=== PATIENT | female | born 1990 | race Caucasian/White ===

== ENCOUNTER 2019-04-14 21:39 | Emergency (ER) | payer BC, SELFPAY ==
[2019-04-14 22:13] VITALS: BP 157/108; PULSE 89; RESP 16; TEMP 37.1; O2SAT 100; BMI 48.1
== END 2019-04-15 00:22 | disposition home or self-care (01) ==
PROVIDERS: Emergency Provider Emergency Medicine; Family Provider Family Medicine; PCP Family Medicine
DX: Z53.21 Procedure and treatment not carried out due to patient leaving prior to being seen by health care provider (principal)
CPT/HCPCS: 99281

== ENCOUNTER → 2021-01-17 13:43 | Outpatient (BNVA) | payer BC, SELFPAY | PROVIDERS: Family Provider Family Medicine; PCP Family Medicine; Visit Provider Internal Medicine | DX: I77.6 Arteritis, unspecified (principal); G62.9 Polyneuropathy, unspecified; Z79.899 Other long term (current) drug therapy; Z11.59 Encounter for screening for other viral diseases | CPT/HCPCS: 99204 ==

== ENCOUNTER 2021-01-17 14:52 | Outpatient (CLI) | payer BC, SELFPAY ==
--- NOTE | 2021-01-17 15:01 | XR_ITS ---
WS: [id number] Lateral views of cervical spine in the flexion, extension and neutral positions. 01/17/2021 Clinical Data: G62.9 - Polyneuropathy, unspecified Comparison: None. Findings: The disc heights are normal. No compression fractures are seen. There is no prevertebral soft tissue swelling. On flexion and extension there is no limitation of motion or subluxation. XR/XR cervical spine fl/ex [id number] Impression: Negative for limitation of motion or subluxation on flexion or extension.
--- NOTE | 2021-01-17 15:01 | XR_ITS ---
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 Findings: No nodules, masses or effusions are seen. The heart is normal. The pulmonary vascularity is not increased. No pneumonia or pneumothorax is seen. XR/XR chest 2V* [id number] Impression: Negative chest.
== END 2021-01-17 14:53 | disposition home or self-care (01) ==
LOC: RAD 14:56
PROVIDERS: PCP Clinical Nurse Specialist Adult Health; Visit Provider Internal Medicine
DX: G62.9 Polyneuropathy, unspecified (principal); Z79.899 Other long term (current) drug therapy
CPT/HCPCS: 71046; 72040

== ENCOUNTER 2021-01-19 14:47 | Outpatient (CLI) | payer BC, SELFPAY ==
--- NOTE | 2021-01-19 14:50 | CT_ITS ---
WS: [id number] CT head wo con* [id number] REASON FOR EXAM: G62.9 - Polyneuropathy, unspecified IV CONTRAST ADMINISTERED: None. TOTAL EXAM DLP: 1012.[address] scans at [facility] use at least one of these dose optimization techniques: automat ed exposure control; mA and/or kV adjustment per patient size (includes targeted exams where dose is matched to clinical indication); or iterative reconstruction. FINDINGS: No significant interval change compared to previous study 09/21/2018. No midline shift or other significant mass effect. No findings of intracranial hemorrhage and no extra-axial fluid collection. No focal brain parenchymal abnormality within the cerebral hemispheres, cerebellar hemispheres, or br ainstem. Normal ventricles. No focal abnormality of the skull base. CT/CT head wo con* [id number] IMPRESSION: No interval change compared to the previous study. No acute intracranial abnorm ality.
== END 2021-01-19 14:48 | disposition home or self-care (01) ==
LOC: RAD 14:48
PROVIDERS: PCP Clinical Nurse Specialist Adult Health; Visit Provider Internal Medicine
DX: G62.9 Polyneuropathy, unspecified (principal); Z11.59 Encounter for screening for other viral diseases
CPT/HCPCS: 36415; 70450; 81001; 81003; 82607; 82728; 83516; 83540; 83735; 84155; 84165; 85651; 86140; 86704; 86803; 87086; 87340

== ENCOUNTER 2021-01-26 14:33 | Outpatient (CLI) | payer BC, SELFPAY ==
[2021-01-26 15:45] LABS: C Reactive Protein 22.3 mg/L (0.0-4.9); Complement C3 180 mg/dL (90-180); Immunoglobulin IGA 542 mg/dL (70-400); Immunoglobulin IGG 1599 mg/dL (700-1600); Immunoglobulin IGM 244 mg/dL (40-230)
[2021-01-29 16:48] LABS: Cyclic Citrullinated Peptide <16 UNITS
[2021-01-30 00:37] LABS: Gliadin Ab.IgA <1.0 U/mL; Gliadin Ab.IgG <1.0 U/mL; Immunoglobulin A 538 mg/dL (47-310); Tissue Transglutaminase IgA Ab <1.0 U/mL; Tissue transglutaminase Ab.IgG <1.0 U/mL
== END 2021-01-26 14:34 | disposition home or self-care (01) ==
LOC: LAB 14:40
PROVIDERS: PCP Clinical Nurse Specialist Adult Health; Visit Provider Internal Medicine
DX: R70.0 Elevated erythrocyte sedimentation rate (principal)
CPT/HCPCS: 82784; 83516; 86140; 86160; 86200; 86431

== ENCOUNTER 2021-02-14 10:00 | Outpatient (CLI) | payer BC, SELFPAY ==
[2021-02-14 11:58] LABS: Basophils # 0.1 10^3/uL (0.0-0.1); Basophils % 0.6 %; Eosinophils # 0.1 10^3/uL (0.0-0.8); Eosinophils % 1.3 %; Hematocrit 41.2 % (37.0-47.0); Hemoglobin 13.2 g/dL (11.5-15.3); Lymphocytes # 1.8 10^3/uL (0.8-4.8); Lymphocytes % 17.8 %; Mean Corpuscular Hemoglobin 28.2 pg (28.0-34.0); Mean Platelet Volume 11.5 fL (7.4-10.4); Monocytes # 0.7 10^3/uL (0.2-0.9); Neutrophils # 7.36 10^3/uL (1.8-7.7); Neutrophils % 72.9 %; Nucleated Red Blood Cells % 0 %; Platelet Count 382 10^3/cmm (130-400); Red Blood Count 4.68 10^6/uL (4.1-5.3); Red Cell Distribution Width 12.7 % (12.1-15.1); White Blood Count 10.1 10^3/uL (4.0-10.0)
[2021-02-14 12:15] LABS: LAB Peripheral Smear Sent for Review
[2021-02-14 12:41] LABS: Alanine Aminotransferase 12 U/L (0-33); Albumin Level 3.8 g/dL (3.5-5.2); Alkaline Phosphatase 95 IU/L (35-105); Blood Urea Nitrogen 7 mg/dL (6-20); Calcium 9.3 mg/dL (8.5-10.5); Carbon Dioxide 27 mmol/L (22-29); Chloride 103 mmol/L (98-107); Ferritin 190 ng/mL (15-150); Globulin 4.3 g/dL (1.3-4.6); Glomerular Filtration Rate 118.2 mL/min (90-130); Glucose 90 mg/dL (65-115); Homocysteine 11.39; Iron 49 ug/dL (37-145); Osmolality Calculated 284 mOsm/kg (285-295); Sodium 138 mmol/L (136-145); Thyroid Stimulating Hormone 3.91 uIU/mL (0.27-4.20); Total Bilirubin 0.2 mg/dL (0.15-1.2); Total Protein 8.1 g/dL (6.6-8.7); Vitamin B12 243 pg/mL (232-1245)
[2021-02-14 12:48] LABS: Anion Gap 12.1 (5-19)
[2021-02-14 12:49] LABS: Aspartate Amino Transferase 15 U/L (0-32); Lactate Dehydrogenase 234 U/L (135-214); Potassium 4.1 mmol/L (3.5-5.1)
[2021-02-14 13:27] LABS: Percent Saturation 17.2 % (20-50); Total Iron Binding Capacity 284 mcg/dl; Unsaturated Iron Binding 235 ug/dL (112-347)
--- NOTE | 2021-02-14 18:16 | ONC CON_ITS ---
Dr. Neil New Patient Note Patient: Isabela Bennett Unit #: [id number]: 1990 Dicatated By: Ishaan Neil M.D.Date of Visit: Feb 14, 2021 Onc MED New Patient/Consult Referring Physician: Dali Cardona A.P.N. Chief Complaint: Polyclonal gammopathy. History of Present Illness: This is a 30-year-old woman with a polyclonal gammopathy. 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 At that time she had a fairly generalized skin eruption, apparently involving both the trunk and lower extremities. She had complete resolution of the skin eruption on steroid therapy and she has had no recurrence. She had recently seen her primary care provider with complaints of tingling in her scalp on the right side. There was concerned that the vasculitis might be recurring, and she apparently was found to have elevated inflammatory markers. She was then seen for consultation by Dr. Juares on 01/17/2021. Her laboratory studies at that time included a significantly elevated sed rate at 70 mL/h and an elevated CRP at 26.2 mg/L. 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 Her urine protein electrophoresis showed no monoclonal protein. Her hepatitis serology was nonreactive. Her serum iron was low at 29 mcg/dL and her B12 level also slightly low at 225 pg/mL. Her subsequent laboratory studies included quantitative immunoglobulin levels which showed IgG at the upper limit of normal at 1599 mg/dL, IgA elevated at 538 mg/dL, and IgM elevated at 244 mg/dL. Her RA titer was normal at 10 IU/mL and the IgG anti-CCP was normal <16. She continues to have some tingling in her scalp on the right side and she also has had some nerve pain, though her symptoms have improved somewhat with venlafaxine. She says that some days she is more tired than others, but she has normal activity. ECOG score is 0. Her appetite is good. She has not had fever. She occasionally has sweating and she also has a tendency to feel hot. She complains that her ears feel full and she sometimes has stuffy nose. She has not had sore mouth or throat, and she does not complain of cough. She does have some shortness of breath and she sometimes has heaviness in her upper chest. She also reports having palpitations. She has no GI/ complaints other than heartburn. She has pain in her shoulders and sometimes in her ankles. She does not complain of headache. She sometimes has dizziness. She does not have any other focal neurologic symptoms. She has not had any abnormal bruising or bleeding, and she has had no recurrence of skin eruption. She does report having anxiety. Past Medical History: Her medical history includes anxiety, depression, history of cutaneous vasculitis, hypothyroidism, and obstructive sleep apnea. Past Surgical History: Her surgical/procedural history includes cholecystectomy in 2014 and section in 2012. Medications: clonazePAM 1 Tablet (of 0.5 mg) Oral daily PRN, Levothyroxine Sodium 1 Tablet (of 50 mcg) Oral daily, Venlafaxine HCl ER 1 Capsule (of 37.5 mg) Capsule SR 24 HR Oral daily Allergies: Sulfamethoxazole-Trimethoprim Social History: Ms. Bennett is single. 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 She is a non-smoker. She does not drink alcohol. Family History: Father is still living at age 54. He has diabetes and he recently had surgery for colon cancer. Mother with lung cancer at age 49. Two brothers are in good health. Review Of Symptoms: Constitutional - Some days she is more tired than others, but she still has normal activity. Her appetite is good. She has not had fever. She occasionally has sweating, and she sometimes feels hot. ECOG score is 0, Allergic/Immunologic - She was treated for cutaneous vasculitis 2 years ago, Eyes - No change in vision, ENMT - No hearing loss or tinnitus. She complains that her ears feel full and she sometimes has stuffy nose. No mouth sores. No sore throat or difficulty swallowing, Hematologic/Lymphatic - No abnormal bruising or bleeding, Respiratory - She has some shortness of breath. No cough. No pleuritic pain or hemoptysis, Cardiovascular - She sometimes has heaviness in her upper chest and she sometimes has palpitations, Gastrointestinal - No nausea or vomiting. She has heartburn. No diarrhea or constipation. No blood in the stool or black stools, Genitourinary (F) - No dysuria or hematuria. No urinary frequency. No urgency or incontinence, Musculoskeletal - She has some pain in her shoulders and sometimes in her ankles, Integumentary - She has had no recurrence of skin eruption, Neurologic - No headache. She sometimes has dizziness. She does not complain of numbness, she has been having some tingling in her scalp area on the right side and she also reports having some nerve pain, Psychiatric - She has anxiety. She currently does not have depression. No insomnia. Vital Signs: Performed on Feb 14, 2021 10:41: 3, 0, 53.48 (HIGH), 2.42 sq.m, 65 in, 98 %, 89 /min, 18 /min, 137/88 mm(hg), 97.8 F (LOW), and 321.4 lbs (HIGH). Physical Examination: Constitutional - She does not appear acutely ill, Eyes - Sclerae nonicteric. Conjunctivae clear, ENMT - No lesions noted in the oral cavity, Neck - No mass or thyromegaly, Hematologic/Lymphatic - No cervical, clavicular, or axillary adenopathy, Respiratory - Lungs are clear with good air movement bilaterally, Cardiovascular - Heart rhythm is regular. There is no murmur, gallop, or rub noted, Abdomen - Distended. Liver and spleen are not enlarged. There is no abdominal mass or ascites noted and there is no inguinal adenopathy, Back/Spine - No spine or CVA tenderness noted, Extremities - No edema. Pedal pulses are palpable bilaterally, Integumentary - No rashes. No suspicious skin lesions noted, Neurologic - No focal neurologic deficits noted. Problem List: 1. Patient with polyclonal gammopathy in association with significantly elevated inflammatory markers. The underlying cause is uncertain. 2. She has a history of cutaneous vasculitis diagnosed in July 2018, completely resolved with steroid therapy. 3. Hypothyroidism. 4. Obstructive sleep apnea. 5. Chronic anxiety. 6. History of depression. Problems Addressed with this Encounter and Plan: Patient with polyclonal gammopathy in association with significantly elevated inflammatory markers. The underlying cause is uncertain. She has a history of cutaneous vasculitis diagnosed in July 2018, but it completely resolved with steroid therapy, and thus far there has been no evidence of recurrence. The studies thus far show no evidence of underlying hematologic disorder. Her initial studies, though, also showed low serum iron and a slightly low B12 level. Given those findings, she will have additional laboratory studies today to include CBC, comprehensive metabolic profile, sed rate and CRP level, serum iron studies and ferritin, B12 and folate levels, methylmalonic acid and homocystine levels, TSH level, LDH level, repeat serum protein electrophoresis with immunofixation, and serum free light chain assay. She will have further evaluation as indicated. Signed By: Ishaan Neil M.D. <<Signature on File>>
[2021-02-15 10:29] LABS: PROTEIN, TOTAL 7.8 g/dL (6.1-8.1)
[2021-02-15 13:12] LABS: KAPPA LIGHT CHAIN, FREE, SERUM 43.8 mg/L (3.3-19.4); KAPPA/LAMBDA LIGHT CHAINS FREE 1.37 (0.26-1.65); LAMBDA LIGHT CHAIN, FREE, SERU 31.9 mg/L (5.7-26.3)
[2021-02-15 13:33] LABS: ALBUMIN 3.4 g/dL (3.8-4.8); ALPHA 1 GLOBULIN 0.4 g/dL (0.2-0.3); BETA 1 GLOBULIN 0.5 g/dL (0.4-0.6); BETA 2 GLOBULIN 0.6 g/dL (0.2-0.5); GAMMA GLOBULIN 1.9 g/dL (0.8-1.7)
[2021-02-15 14:05] LABS: Erythrocyte Sedimentation Rate 70 mm/hr (0-15)
[2021-02-20 15:52] LABS: Methylmalonic Acid 97 nmol/L (87-318)
== END 2021-02-14 10:01 | disposition home or self-care (01) ==
LOC: ONCMED 10:03
PROVIDERS: PCP Clinical Nurse Specialist Adult Health; Visit Provider Internal Medicine Medical Oncology
DX: D89.0 Polyclonal hypergammaglobulinemia (principal); E03.9 Hypothyroidism, unspecified; G47.33 Obstructive sleep apnea (adult) (pediatric); F41.9 Anxiety disorder, unspecified; F32.9 Major depressive disorder, single episode, unspecified; Z79.899 Other long term (current) drug therapy
CPT/HCPCS: 36415; 80053; 82607; 82728; 83090; 83540; 83550; 83615; 83883; 83921; 84155; 84165; 84443; 85025; 85651; 86141; 99204

== ENCOUNTER 2021-03-13 12:31 | Outpatient (CLI) | payer BC, SELFPAY ==
[2021-03-13 14:31] LABS: Basophils # 0.1 10^3/uL (0.0-0.1); Basophils % 0.6 %; Eosinophils # 0.2 10^3/uL (0.0-0.8); Eosinophils % 1.4 %; Hematocrit 42.2 % (37.0-47.0); Hemoglobin 14.1 g/dL (11.5-15.3); Lymphocytes # 1.7 10^3/uL (0.8-4.8); Lymphocytes % 14.5 %; Mean Corpuscular HGB Conc 33.4 g/dL (30.0-36.0); Mean Corpuscular Hemoglobin 28.5 pg (28.0-34.0); Mean Corpuscular Volume 85.4 fl (81-99); Mean Platelet Volume 12.9 fL (7.4-10.4); Monocytes # 0.8 10^3/uL (0.2-0.9); Monocytes % 6.7 %; Neutrophils # 9.17 10^3/uL (1.8-7.7); Neutrophils % 76.2 %; Nucleated Red Blood Cells % 0 %; Platelet Count 315 10^3/cmm (130-400); Red Blood Count 4.94 10^6/uL (4.1-5.3)
[2021-03-13 14:36] LABS: Homocysteine 11.97
[2021-03-13 15:15] LABS: Urine Appearance Cloudy (CLEAR); Urine Color Red (Yellow)
[2021-03-13 15:16] LABS: Add Urine Microscopic? YES; Bilirubin Urine 1+ (Negative); Blood Urine 3+ (Negative); Glucose Urine UA Norm (Normal); Ketones Urine Negative (Negative); Leukocyte Esterase Urine Trace (Negative); Nitrate Urine Negative (Negative); Protein Urine 2+ (Negative); Urobilinogen Urine Norm (Negative); pH Urine 5 (5-7)
[2021-03-13 15:17] LABS: Amorphous Sediment Urine TRACE /hpf; Bacteria Urine 1+ /hpf; Mucus Urine 2+ /hpf; RBC Urine 0-4 /hpf (0-2); Squamous Epithelial Cell Urine 15-25 /hpf (0-5); Uric Acid Crystals Urine N /hpf
[2021-03-13 15:18] LABS: Add Urine Culture? No
[2021-03-13 15:41] LABS: Slide Review Slide Review Perform
[2021-03-16 12:13] LABS: ANCA Screen NEGATIVE (NEGATIVE)
[2021-03-19 16:42] LABS: Methylmalonic Acid 122 nmol/L (87-318)
== END 2021-03-13 12:32 | disposition home or self-care (01) ==
LOC: ONCMED 12:32
PROVIDERS: Internal Medicine Medical Oncology; PCP Clinical Nurse Specialist Adult Health; Visit Provider Internal Medicine Hematology & Oncology
DX: D89.0 Polyclonal hypergammaglobulinemia (principal)
CPT/HCPCS: 36415; 81001; 83090; 83516; 83921; 85025; 85651; 87040

== ENCOUNTER 2021-03-16 06:51 | Outpatient (CLI) | payer BC, SELFPAY ==
[2021-03-16 10:37] LABS: Add Urine Culture? No; Bacteria Urine 1+ /hpf; Bilirubin Urine Neg (Negative); Blood Urine 3+ (Negative); Glucose Urine UA Norm (Normal); Ketones Urine Negative (Negative); Leukocyte Esterase Urine Negative (Negative); Mucus Urine 1+ /hpf; Nitrate Urine Negative (Negative); Protein Urine 1+ (Negative); RBC Urine 80-100 /hpf (0-2); Squamous Epithelial Cell Urine 15-25 /hpf (0-5); Urine Appearance SL Hazy (CLEAR); Urine Color Orange (Yellow); Urobilinogen Urine 1 mg/dL (Negative); pH Urine 5 (5-7)
[2021-03-22 22:06] LABS: Cryoglobulins Qualitative None Detected (None Detected)
== END 2021-03-16 06:52 | disposition home or self-care (01) ==
LOC: ONCMED 06:52
PROVIDERS: PCP Clinical Nurse Specialist Adult Health; Visit Provider Internal Medicine Hematology & Oncology
DX: D89.0 Polyclonal hypergammaglobulinemia (principal)
CPT/HCPCS: 36415; 81001; 82595

== ENCOUNTER 2021-12-28 14:20 | Emergency (ER) | payer BC, SELFPAY ==
--- NOTE | 2021-12-28 14:29 | ECG_ITS ---
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 Measurements Intervals [place] Rate: 74 P: 56 VT: 169 QRS: 36 QRSD: 93 T: 34 QT: 359 QTc: 399 Interpretive Statements SINUS RHYTHM No previous ECG available for comparison Electronically Signed On 12-29-2021 8:35:57 CDT by Judit Sprague M.D. [id number]
[2021-12-28 14:30] VITALS: BP 175/116; PULSE 81; RESP 16; TEMP 36.4; O2SAT 99
--- NOTE | 2021-12-28 14:57 | XR_ITS ---
WS: [id number] Portable AP upright chest, 12/28/2021 Clinical Data: cp Comparison: PA and lateral chest, 01/17/2021 Findings: No nodules, masses or effusions are seen. The heart is normal. The pulmonary vascularity is not increased. No pneumonia or pneumothorax is seen. XR/XR chest 1V portable [id number] Impression: Negative chest.
[2021-12-28 16:11] LABS: Basophils # 0.1 10^3/uL (0.0-0.1); Basophils % 0.6 %; Eosinophils % 0.3 %; Hemoglobin 13.8 g/dL (11.5-15.3); Lymphocytes % 14.3 %; Mean Corpuscular HGB Conc 32.1 g/dL (30.0-36.0); Mean Corpuscular Hemoglobin 28.3 pg (28.0-34.0); Mean Corpuscular Volume 88.3 fl (81-99); Mean Platelet Volume 11.8 fL (7.4-10.4); Monocytes # 0.7 10^3/uL (0.2-0.9); Monocytes % 4.7 %; Neutrophils # 11.35 10^3/uL (1.8-7.7); Neutrophils % 79.6 %; Nucleated Red Blood Cells % 0 %; Platelet Count 390 10^3/cmm (130-400); Red Blood Count 4.87 10^6/uL (4.1-5.3); Red Cell Distribution Width 12.7 % (12.1-15.1); White Blood Count 14.2 10^3/uL (4.0-10.0)
[2021-12-28 16:44] LABS: Troponin(5th) Baseline 6 ng/L (0-10)
[2021-12-28 16:52] LABS: Alanine Aminotransferase 10 U/L (0-33); Albumin Level 4.3 g/dL (3.5-5.2); Alkaline Phosphatase 110 U/L (35-105); Anion Gap 14.8 (5-19); Aspartate Amino Transferase 11 U/L (0-32); Blood Urea Nitrogen 10 mg/dL (6-20); Calcium 10.4 mg/dL (8.5-10.5); Carbon Dioxide 29 mmol/L (22-29); Chloride 100 mmol/L (98-107); Globulin 4.2 g/dL (1.3-4.6); Glomerular Filtration Rate 98.3 mL/min (90-130); Glucose 107 mg/dL (65-115); Osmolality Calculated 290 mOsm/kg (285-295); Potassium 3.8 mmol/L (3.5-5.1); Sodium 140 mmol/L (136-145); Total Bilirubin 0.2 mg/dL (0.15-1.2); Total Protein 8.5 g/dL (6.6-8.7)
[2021-12-28] MEDS: acetaminophen 500 mg Tablet PO (17:52)
--- NOTE | 2021-12-28 17:54 | ED_ITS ---
HPI - General Adult General: Chief complaint: Chest Pain Stated complaint: Chest pain SOB Time Seen by Provider: 12/28/21 17:37 History of Present Illness: CC: Chest Pain HPI: This is a 31yo patient hx of hypothyroidism currently getting workup for positive ITALIA marker presenting to the ED complaining of acute constant achy/sharp chest pain for the last 7 days with radiation to the chest and shoulder. No associated with shortness of breath, chest pain or dyspnea on exertion. Pain is not tearing in nature and does not radiate to the back. Pain not associated with vomiting or PO intake. Denies any recent sympathomimetic drug use. Patient denies any cough. Denies palpitations, dysphagia, diaphoresis, radiation of pain to bilateral arms, jaw. Denies F/N/V/D. Patient denies any r ecent immobility, surgery, unilateral leg swelling, or prior PE. Patient denies any orthopnea. Onset: 7days ago Duration: ongoing for the last 7days Location: home Severity: mild/moderate Associated symptoms: Reports chest pain and dyspnea; Deny nausea, rash, palpitations or vomiting Review of Systems Const: Denies: fever(s) or chills Eyes: Denies: change in vision ENMT: Denies: mouth pain Card: Reports: chest pain; Denies: palpitations Resp: Reports: dyspnea; Denies: non-productive cough GI: Denies: abdominal pain, nausea, vomiting or diarrhea : Denies: dysuria Musc: Denies: extremity pain Skin/Breast: Denies: rash or new lesions Neuro: Denies: weakness in extremities Psych: Reports: other (Normal mood) Mark/Lymph: Denies: easy bruising [facility] ED PFSH: Medical History (Updated 01/05/22 @ 00:02 by ) Chronic steroid use Cutaneous vasculitis Fibromyalgia High risk medication use Hypothyroidism Inflammatory arthritis Surgical History (Updated 12/31/21 @ 09:58 by Fab Oscar MD) Hx of section Hx of cholecystectomy Family History Mother Cancer Father Diabetes Denies family history of Rheumatoid arthritis Lupus CAD (coronary artery disease) Hyperlipidemia Hypertension Stroke Social History Smoking and tobacco status: never smoked Alcohol intake: never History of recent travel: No Physical Exam Const: COMMON NORMALS: alert HENMT: COMMON NORMALS: atraumatic HEAD & SCALP: atraumatic MOUTH: moist mucous membranes not abnormal Eye: COMMON NORMALS: EOMs intact bilaterally and conjunctivae normal CONJUNCTIVA: Yes conjunctivae normal Neck/C-Spine: COMMON NORMALS: full ROM and supple Resp: COMMON NORMALS: normal respiratory effort and clear to auscultation bilaterally AUSCULTATION: clear to auscultation bilaterally Cardio: COMMON NORMALS: regular rate RATE: regular rate OTHER: 2+ radial pulses b/l GI: COMMON NORMALS: Soft to palpation and non-tender PALPATION: Yes Soft to palpation OTHER: No focal TTP. NO guarding rebound, guarding, rigidity. No CVA tenderness to percussion. Neg Dotson/Neg McBurney's point tenderness, no suprabupic tenderness to palpation. Extremity: COMMON NORMALS: full ROM Neuro: SENSORIUM/ORIENTATION: Yes alert MOTOR EXAM: No Abnormal motor strength present and Other motor observations present (no focal motor deficits) Psych: COMMON NORMALS: speech normal SPEECH: Yes normal speech MOOD & AFFECT: Yes euthymic mood Course Vital Signs: Vital signs: Vital Signs Temperature 97.6 F 12/28/21 14:30 Pulse Rate 81 12/28/21 14:30 Respiratory Rate 16 12/28/21 14:30 Blood Pressure 175/116 12/28/21 14:30 Pulse Oximetry 99 12/28/21 14:30 Oxygen Delivery Me thod 12/28/21 14:30 MDM - General Adult Medical Decision Making [31]yo patient w/ hx of hypothyroidism presenting to the ED with evaluation of new onset sharp chest pain ongoing constant x 7 days. HDS, pulse 2+ radially bilaterally, no signs of fluid overload, AAOx3, neuro exam intact. Given History and Exam today I have no suspicion for ACS, Pneumothorax, Pneumonia, Pulmonary Embolus, Tamponade, Aortic Dissection or other emergent problems as a cause for this presentation. Workup: ECG, CXR, CBC, BMP, Troponin Interventions: Tylenol Findings: ECG: No overt evidence of STEMI, hyperacute T waves, localizable STD or T wave inversions. No evidence of Brugada?s sign, delta wave, epsilon wave, significantly prolonged QTc, or malignant arrhythmia. No Q waves. Other Labs unremarkable for emergent problems. CXR: Without PTX, PNA, or widened mediastinum Last Stress Test: never Last Heart Catheterization: never HEART Score: 0 Dimer wnl [6:30pm] On reassessment, the patient is HDS, no complaints of persistent chest pain in the ED after evaluation. ECG is non-ischemic. Workup today is unremarkable. Doubt ACS/PE or other emergent causes of chest pain. Doubt ACS/PE or other emergent causes of chest pain. No suspicion for aortic dissection given no widened mediastinum, 2+ upper extremity pulses, or tearing pain. No suspicion for PE given no pleuritic chest pain, recent immobilization or surgery hemoptysis, or other VTE risk factors. EKG is non-ischemic. XR normal. Rx: Tylenol PRN pain Disposition: Discharge. Strict return precautions discussed with the patient with full understanding. Advised patient to follow up promptly with a primary care provider in 24-48 hrs if the patient has persistent symptoms. Given return instructions for any crushing/tearing chest pain, focal weakness, syncope or any new or concerning issues. Lab Data : 12/28/21 15:50 12/28/21 15:50 Radiology Impressions Chest X-Ray 12/28/21 14:57 Impression: Negative chest. Laboratory Results WBC 14.2 10^3/uL (4.0-10.0) H 12/28/21 15:50 RBC 4.87 10^6/uL (4.1-5.3) 12/28/21 15:50 Hgb 13.8 g/dL (11.5-15.3) 12/28/21 15:50 Hct 43.0 % (37.0-47.0) 12/28/21 15:50 MCV 88.3 fl (81-99) 12/28/21 15:50 MCH 28.3 pg (28.0-34.0) 12/28/21 15:50 MCHC 32.1 g/dL (30.0-36.0) 12/28/21 15:50 RDW 12.7 % (12.1-15.1) 12/28/21 15:50 Plt Count 390 10^3/cmm (130-400) 12/28/21 15:50 MPV 11.8 fL (7.4-10.4) H 12/28/21 15:50 Neut % (Auto) 79.6 % 12/28/21 15:50 Lymph % (Auto) 14.3 % 12/28/21 15:50 [place] % (Auto) 4.7 % 12/28/21 15:50 Eos % (Auto) 0.3 % 12/28/21 15:50 Baso % (Auto) 0.6 % 12/28/21 15:50 Neut # (Auto) 11.35 10^3/uL (1.8-7.7) H 12/28/21 15:50 Lymph # (Auto) 2.0 10^3/uL (0.8-4.8) 12/28/21 15:50 [place] # (Auto) 0.7 10^3/uL (0.2-0.9) 12/28/21 15:50 Eos # (Auto) 0.0 10^3/uL (0.0-0.8) 12/28/21 15:50 Baso # (Auto) 0.1 10^3/uL (0.0-0.1) 12/28/21 15:50 Nucleated RBC % (auto) 0 % 12/28/21 15:50 Nucleated RBCs # 0.0 /100WBC 12/28/21 15:50 D-Dimer 0.29 ug/mIFEU (0-0.59) 12/28/21 17:54 Sodium 140 mmol/L (136-145) 12/28/21 15:50 Potassium 3.8 mmol/L (3.5-5.1) 12/28/21 15:50 Chloride 100 mmol/L (98-107) 12/28/21 15:50 Carbon Dioxide 29 mmol/L (22-29) 12/28/21 15:50 Anion Gap 14.8 (5-19) 12/28/21 15:50 BUN 10 mg/dL (6-20) 12/28/21 15:50 Creatinine 0.7 mg/dL (0.5-0.9) 12/28/21 15:50 GFR Calculation 98.3 mL/min (90-130) 12/28/21 15:50 Glucose 107 mg/dL (65-115) 12/28/21 15:50 Calculated Osmolality 290 mOsm/kg (285-295) 12/28/21 15:50 Calcium 10.4 mg/dL (8.5-10.5) 12/28/21 15:50 Total Bilirubin 0.2 mg/dL (0.15-1.2) 12/28/21 15:50 AST 11 U/L (0-32) 12/28/21 15:50 ALT 10 U/L (0-33) 12/28/21 15:50 Alkaline Phosphatase 110 U/L (35-105) H 12/28/21 15:50 Troponin T Baseline 6 ng/L (0-10) 12/28/21 15:50 Total Protein 8.5 g/dL (6.6-8.7) 12/28/21 15:50 Albumin 4.3 g/dL (3.5-5.2) 12/28/21 15:50 Globulin 4.2 g/dL (1.3-4.6) 12/28/21 15:50 HCG, Qual Negative (Negative) 12/28/21 17:54 Imaging Data Other Imaging: Radiologist's impression: [address] [address] XRay Report Signed Patient: Isabela Bennett Unit #: [id number] : 1990 Age/Sex: 31 / F ADM Date: 12/28/21 Loc: ER Room/Bed: Attending Dr: Ordering Provider/Ordering MD: Arun Gordon MD Date of Service: 12/28/21 Procedure(s): XR chest 1V portable [id number] Accession Number(s): [id number] Report Number: [id number] WS: [id number] Portable AP upright chest, 12/28/2021 Clinical Data: cp Comparison: PA and lateral chest, 01/17/2021 Findings: No nodules, masses or effusions are seen. The heart is normal. The pulmonary vascularity is not increased. No pneumonia or pneumothorax is seen. XR/XR chest 1V portable [id number] Impression: Negative chest. ? Dictated By: Blossom Holland MD Signed By: Blossom Holland MD Signed Date/Time: 12/28/211533 DD/ 33 Discharge Plan Discharge Patient Disposition: Home Clinical Impression: Chest pain Condition: Stable Prescriptions: No Action pantoprazole 40 mg tablet,delayed release (DR/EC) See Rx Instructions PO DAILY Qty: 30 3RF Rx Instructions: take in AM 30 minutes before meal PO daily; methotrexate sodium 2.5 mg tablet See Rx Instructions PO .Q7days Qty: 30 3RF Rx Instructions: take 6 tabs on same day once a week PO .Q7days; folic acid 1 mg tablet 1 mg PO DAILY Qty: 30 3RF clonazepam 0.5 mg tablet 0.5 mg PO DAILY PRN (Reason: Anxiety) levothyroxine 75 mcg Tablet 75 mcg PO DAILY prednisone 20 mg tablet 10 mg PO DAILY Discharge Orders: Discharge ED (Routine); Ordered 12/28/21 Ordered By: Az Payne Discharge Diet: Advance as tolerated Discharge Activity: Increase activity as tolerated Patient Instructions: Chest Pain (ED) Activity Restrictions/Additional Instructions: Come back to the emergency room if your chest pain worsens, have any fever or chills, worsening shortness of breath, worsening exertional lightheadedness, or any new or concerning complaints. Coding Level of Care Code ED [employer] Technician for Kavita Fwmayra Exam Comprehensive
--- NOTE | 2021-12-28 18:00 | ECG_ITS ---
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 Measurements Intervals [place] Rate: 71 P: 44 ND: 173 QRS: 34 QRSD: 95 T: 35 QT: 357 QTc: 389 Interpretive Statements SINUS RHYTHM Compared to ECG 12/28/2021 14:29:22 No significant changes Electronically Signed On 12-29-2021 8:39:16 CDT by Judit Sprague M.D. [email or web address]
[2021-12-28 18:09] LABS: HCG, Serum Qual Negative (Negative)
[2021-12-28 18:14] LABS: D Dimer 0.29 ug/mIFEU (0-0.59)
== END 2021-12-28 18:35 | disposition home or self-care (01) ==
PROVIDERS: Emergency Medicine; Emergency Provider Emergency Medicine
DX: R07.9 Chest pain, unspecified (principal); E03.9 Hypothyroidism, unspecified
CPT/HCPCS: 71045; 80053; 84484; 84703; 85025; 85378; 93005; 99285

== ENCOUNTER 2022-01-31 15:10 | Outpatient (CLI) | payer BC, SELFPAY ==
[2022-01-31 16:25] LABS: Basophils # 0.1 10^3/uL (0.0-0.1); Basophils % 0.4 %; Eosinophils # 0.2 10^3/uL (0.0-0.8); Eosinophils % 0.9 %; Hemoglobin 13.3 g/dL (11.5-15.3); Lymphocytes % 23.7 %; Mean Corpuscular HGB Conc 31.7 g/dL (30.0-36.0); Mean Corpuscular Hemoglobin 28.6 pg (28.0-34.0); Mean Corpuscular Volume 90.3 fl (81-99); Mean Platelet Volume 10.9 fL (7.4-10.4); Monocytes % 5.9 %; Neutrophils # 11.39 10^3/uL (1.8-7.7); Neutrophils % 68.3 %; Nucleated Red Blood Cells % 0 %; Platelet Count 430 10^3/cmm (130-400); Red Blood Count 4.65 10^6/uL (4.1-5.3); Red Cell Distribution Width 13.8 % (12.1-15.1); White Blood Count 16.7 10^3/uL (4.0-10.0)
[2022-01-31 16:30] LABS: Erythrocyte Sedimentation Rate 19 mm/hr (0-15)
[2022-01-31 16:31] LABS: Bilirubin Urine Neg (Negative); Blood Urine Neg (Negative); Glucose Urine UA Norm (Normal); Ketones Urine 1+ (Negative); Leukocyte Esterase Urine Negative (Negative); Nitrate Urine Negative (Negative); Protein Urine Neg (Negative); Specific Gravity, Urine 1.025 (1.005-1.030); Urine Appearance Clear (CLEAR); Urine Color Yellow (Yellow); Urobilinogen Urine Norm (Negative); pH Urine 5 (5-7)
[2022-01-31 16:48] LABS: Add Urine Culture? No; Bacteria Urine TRACE /hpf; RBC Urine 0-4 /hpf (0-2); WBC Urine 0-4 /hpf (0-5)
[2022-01-31 16:56] LABS: Urine Creatinine 231 mg/dL (28-217); Urine Protein Random 12 mg/dL
[2022-01-31 17:12] LABS: Alanine Aminotransferase 10 U/L (0-33); Albumin Level 3.6 g/dL (3.5-5.2); Alkaline Phosphatase 110 U/L (35-105); Aspartate Amino Transferase 10 U/L (0-32); C Reactive Protein 25.6 mg/L (0.0-4.9); Globulin 4.3 g/dL (1.3-4.6); Glomerular Filtration Rate 98.3 mL/min (90-130); Total Bilirubin 0.2 mg/dL (0.15-1.2); Total Protein 7.9 g/dL (6.6-8.7)
== END 2022-01-31 15:11 | disposition home or self-care (01) ==
PROVIDERS: PCP Nurse Practitioner Family; Visit Provider Internal Medicine Rheumatology
DX: M19.90 Unspecified osteoarthritis, unspecified site (principal); Z79.899 Other long term (current) drug therapy
CPT/HCPCS: 80076; 81001; 82565; 82570; 84156; 85025; 85651; 86140

== ENCOUNTER 2022-04-19 07:18 | Outpatient (CLI) | payer OTHER, SELFPAY ==
[2022-04-19 07:49] LABS: Basophils # 0.1 10^3/uL (0.0-0.1); Basophils % 0.5 %; Eosinophils % 0.3 %; Hematocrit 41.8 % (37.0-47.0); Hemoglobin 13.3 g/dL (11.5-15.3); Lymphocytes # 1.6 10^3/uL (0.8-4.8); Lymphocytes % 13.2 %; Mean Corpuscular HGB Conc 31.8 g/dL (30.0-36.0); Mean Corpuscular Hemoglobin 29.6 pg (28.0-34.0); Mean Corpuscular Volume 92.9 fl (81-99); Mean Platelet Volume 10.4 fL (7.4-10.4); Monocytes # 0.6 10^3/uL (0.2-0.9); Monocytes % 4.7 %; Neutrophils # 10.03 10^3/uL (1.8-7.7); Neutrophils % 80.6 %; Nucleated Red Blood Cells % 0 %; Platelet Count 443 10^3/cmm (130-400); Red Cell Distribution Width 14.6 % (12.1-15.1); White Blood Count 12.5 10^3/uL (4.0-10.0)
[2022-04-19 08:21] LABS: Alanine Aminotransferase 11 U/L (0-33); Albumin Level 3.8 g/dL (3.5-5.2); Alkaline Phosphatase 104 U/L (35-105); Aspartate Amino Transferase 9 U/L (0-32); C Reactive Protein 30.8 mg/L (0.0-4.9); Globulin 3.7 g/dL (1.3-4.6); Glomerular Filtration Rate 97.6 mL/min (90-130); Total Bilirubin 0.3 mg/dL (0.15-1.2); Total Protein 7.5 g/dL (6.6-8.7)
[2022-04-19 08:46] LABS: Free T4 Free Thyroxine 1.14 ng/dL (0.82-1.77); Thyroid Stimulating Hormone 2.35 uIU/mL (0.27-4.20)
[2022-04-22 11:40] LABS: CENTROMERE B ANTIBODY <1.0 NEG AI (<1.0 NEG); JO-1 ANTIBODY <1.0 NEG AI (<1.0 NEG); RNP ANTIBODY <1.0 NEG AI (<1.0 NEG); SCL-70 ANTIBODY <1.0 NEG AI (<1.0 NEG); SJOGREN'S ANTIBODY (SS-A) <1.0 NEG AI (<1.0 NEG); SM ANTIBODY <1.0 NEG AI (<1.0 NEG); SS-B <1.0 NEG AI (<1.0 NEG)
[2022-04-22 12:18] LABS: Cyclic Citrullinated Peptide <16 UNITS
[2022-04-22 13:09] LABS: COMPLEMENT, TOTAL (CH50) >60 U/mL (31-60)
[2022-04-22 14:50] LABS: THYROID PEROXIDASE ANTIBODIES 573 IU/mL (<9)
[2022-04-22 14:55] LABS: COMPLEMENT COMPONENT C3C 190 mg/dL (83-193); COMPLEMENT COMPONENT C4C 41 mg/dL (15-57)
[2022-04-22 15:06] LABS: ANA SCREEN, IFA NEGATIVE (NEGATIVE)
[2022-04-24 15:39] LABS: DNA AB (DS) CRITHIDIA,IFA NEGATIVE (NEGATIVE)
== END 2022-04-19 07:19 | disposition home or self-care (01) ==
PROVIDERS: PCP Nurse Practitioner Family; Visit Provider Internal Medicine Rheumatology
DX: M19.90 Unspecified osteoarthritis, unspecified site (principal); M79.7 Fibromyalgia; R76.8 Other specified abnormal immunological findings in serum; Z79.899 Other long term (current) drug therapy
CPT/HCPCS: 36415; 80076; 82565; 84439; 84443; 85025; 86140; 86160; 86162; 86200; 86235; 86255; 86376

== ENCOUNTER 2022-08-14 12:19 | Outpatient (CLI) | payer OTHER, SELFPAY ==
[2022-08-14 13:24] LABS: Erythrocyte Sedimentation Rate 25 mm/hr (0-15)
[2022-08-14 14:12] LABS: C Reactive Protein 35.2 mg/L (0.0-4.9); Creatine Phosphokinase 37 U/L (26-192); Thyroid Stimulating Hormone 3.07 uIU/mL (0.27-4.20)
[2022-08-16 11:45] LABS: Aldolase 6.3 U/L (< OR = 8.1)
== END 2022-08-14 12:20 | disposition home or self-care (01) ==
PROVIDERS: PCP Nurse Practitioner Family; Visit Provider Internal Medicine Rheumatology
DX: M62.81 Muscle weakness (generalized) (principal); Z79.899 Other long term (current) drug therapy; M19.90 Unspecified osteoarthritis, unspecified site
CPT/HCPCS: 36415; 82085; 82550; 84439; 84443; 85651; 86140

== ENCOUNTER 2022-08-27 17:33 | Emergency (ER) | payer OTHER, SELFPAY ==
[2022-08-27 18:29] VITALS: BMI 52.6
[2022-08-27 18:34] VITALS: BP 168/110; PULSE 98; RESP 18; TEMP 36.6; O2SAT 99
--- NOTE | 2022-08-27 19:18 | ED_ITS ---
HPI - Neck Pain/Injury General: Chief Complaint: Neck Pain/Injury Stated Complaint: neck stiffness Time Seen by Provider: 08/27/22 19:15 History of Present Illness: 32-year-old female comes in today with complaints of left side neck pain with difficulty with lateral movement of the neck. Patient moves neck in flexion and extension without difficulty. Patient denies any fever or chills. Patient appears nontoxic. Patient has a history of rheumatoid arthritis and takes medications routinely for her rheumatoid arthritis. Patient reports the pain started approximately 3 days ago. Associated symptoms: Denies headache(s) or nausea Review of Systems General: Reports: 10 or more systems reviewed and unremarkable except in HPI and below Const: Denies: fever(s) or chills Eyes: Denies: change in vision ENMT: Denies: throat pain Card: Denies: chest pain Resp: Denies: dyspnea GI: Denies: nausea, vomiting, diarrhea or constipation : Denies: difficulty voiding Musc: Reports: neck pain; Denies: back pain or extremity pain Skin/Breast: Denies: rash Neuro: Denies: headache(s) Psych: Denies: anxiety PFSH ED PFSH: Medical History Chronic steroid use Cutaneous vasculitis Fibromyalgia High risk medication use Hypothyroidism Inflammatory arthritis Surgical History Hx of section Hx of cholecystectomy Family History Mother Cancer Father Diabetes Denies family history of Rheumatoid arthritis Lupus CAD (coronary artery disease) Hyperlipidemia Hypertension Stroke Social History Smoking and tobacco status: never smoked Alcohol intake: never Physical Exam Const: COMMON NORMALS: alert HENMT: COMMON NORMALS: atraumatic HEAD & SCALP: atraumatic THROAT: posterior oropharynx normal Neck/C-Spine: CERVICAL SPINE: Yes cervical ROM abnormal rotation to the left decreased, No Cervical spine tenderness and Yes Paracervical muscle tenderness Resp: COMMON NORMALS: normal respiratory effort and clear to auscultation bilaterally AUSCULTATION: clear to auscultation bilaterally Cardio: COMMON NORMALS: regular rate, regular rhythm, S1 normal heart sound present and S2 normal heart sound present RATE: regular rate RHYTHM: regular rhythm HEART SOUNDS: S1 normal heart sound present and S2 normal heart sound present Back/Pelvis: COMMON NORMALS: thoracic and lumbar spine normal to inspection Extremity: COMMON NORMALS: full ROM Neuro: SENSORIUM/ORIENTATION: Yes alert Skin: COMMON NORMALS: turgor normal GENERAL SKIN EXAM: turgor normal Course Vital Signs: Vital signs: Vital Signs Temperature 97.9 F 08/27/22 18:34 Pulse Rate 98 08/27/22 18:34 Respiratory Rate 18 08/27/22 21:50 Blood Pressure 168/110 08/27/22 18:34 Pulse Oximetry 98 08/27/22 21:50 Oxygen Delivery Me thod Room Air 08/27/22 21:50 MDM - Neck Pain/Injury Medical Decision Making 32-year-old female patient comes in today for complaints of left neck pain. Patient also reports some decreased range of motion to the left with lateral rotation. Patient appears nontoxic. Patient does have a history of rheumatoid arthritis. No meningeal signs are noted. Respirations are even lungs are clear to auscultation. Vital signs are normal. Differential diagnosis includes but not limited to discitis, abscess, torticollis, cervical strain. CMP was unremarkable. CBC did note some leukocytosis at 21,000. CRP was 30. Sed rate was 30. Review of the record notes that the CRP and sed rate was stable. WBC was elevated at 21 versus 14 with the last draw. CT of the neck did not note any signs of abscess or infection. Urinalysis had some leukocyte Estrace and white blood cells. We will go ahead and treat for urinary tract infection although the white blood cell count may be just bumped due to the medication patient is on for rheumatoid arthritis. Patient had relief of discomfort with Toradol and hydrocodone. Believe the patient probably has some cervical muscle strain and recommended diclofenac and hydrocodone for home treatment. Patient should follow-up with primary care for further instructions. Also recommended return to the ER for high fever or new concerns. Patient reported understanding agreed to plan. Lab Data 08/27/22 19:44 08/27/22 19:44 Radiology Impressions Cervical Spine CT 08/27/22 19:23 IMPRESSION: No acute findings. Laboratory Results WBC 21.9 10^3/uL (4.0-10.0) H 08/27/22 19:44 RBC 4.93 10^6/uL (4.1-5.3) 08/27/22 19:44 Hgb 14.3 g/dL (11.5-15.3) 08/27/22 19:44 Hct 45.1 % (37.0-47.0) 08/27/22 19:44 MCV 91.5 fl (81-99) 08/27/22 19:44 MCH 29.0 pg (28.0-34.0) 08/27/22 19:44 MCHC 31.7 g/dL (30.0-36.0) 08/27/22 19:44 RDW 13.5 % (12.1-15.1) 08/27/22 19:44 Plt Count 379 10^3/cmm (130-400) 08/27/22 19:44 MPV 10.6 fL (7.4-10.4) H 08/27/22 19:44 Neut % (Auto) 77.5 % 08/27/22 19:44 Lymph % (Auto) 13.6 % 08/27/22 19:44 [place] % (Auto) 6.2 % 08/27/22 19:44 Eos % (Auto) 0.6 % 08/27/22 19:44 Baso % (Auto) 0.5 % 08/27/22 19:44 Neut # (Auto) 16.98 10^3/uL (1.8-7.7) H 08/27/22 19:44 Lymph # (Auto) 3.0 10^3/uL (0.8-4.8) 08/27/22 19:44 [place] # (Auto) 1.4 10^3/uL (0.2-0.9) H 08/27/22 19:44 Eos # (Auto) 0.1 10^3/uL (0.0-0.8) 08/27/22 19:44 Baso # (Auto) 0.1 10^3/uL (0.0-0.1) 08/27/22 19:44 Nucleated RBC % (auto) 0 % 08/27/22 19:44 Nucleated RBCs # 0.0 /100WBC 08/27/22 19:44 ESR 30 mm/hr (0-15) H 08/27/22 19:44 Sodium 139 mmol/L (136-145) 05/16/23 19:44 Potassium 3.6 mmol/L (3.5-5.1) 08/27/22 19:44 Chloride 100 mmol/L (98-107) 08/27/22 19:44 Carbon Dioxide 24 mmol/L (22-29) 08/27/22 19:44 Anion Gap 18.6 (5-19) 08/27/22 19:44 BUN 6 mg/dL (6-20) 08/27/22 19:44 Creatinine 0.7 mg/dL (0.5-0.9) 08/27/22 19:44 GFR Calculation 97.6 mL/min (90-130) 08/27/22 19:44 Glucose 95 mg/dL (65-115) 08/27/22 19:44 Calculated Osmolality 285 mOsm/kg (285-295) 08/27/22 19:44 Calcium 9.1 mg/dL (8.5-10.5) 08/27/22 19:44 Total Bilirubin 0.3 mg/dL (0.15-1.2) 08/27/22 19:44 AST 9 U/L (0-32) 08/27/22 19:44 ALT 12 U/L (0-33) 08/27/22 19:44 Alkaline Phosphatase 99 U/L (35-105) 08/27/22 19:44 C-Reactive Protein 34.1 mg/L (0.0-4.9) H 08/27/22 19:44 Total Protein 8.1 g/dL (6.6-8.7) 08/27/22 19:44 Albumin 4.0 g/dL (3.5-5.2) 08/27/22 19:44 Globulin 4.1 g/dL (1.3-4.6) 08/27/22 19:44 Urine Color Yellow (Yellow) 08/27/22 21:20 Urine Appearance Hazy (CLEAR) A 08/27/22 21:20 Urine pH 5 (5-7) 08/27/22 21:20 Ur Specific [place] 1.020 (1.005-1.030) 08/27/22 21:20 Urine Protein Neg (Negative) 08/27/22 21:20 Urine Glucose (UA) Norm (Normal) 08/27/22 21:20 Urine Ketones Negative (Negative) 08/27/22 21:20 Urine Blood Neg (Negative) 08/27/22 21:20 Urine Nitrate Negative (Negative) 08/27/22 21:20 Urine Bilirubin Neg (Negative) 08/27/22 21:20 Urine Urobilinogen Neg mg/dL (Negative) 08/27/22 21:20 Ur Leukocyte Esterase 1+ (Negative) H 08/27/22 21:20 Urine RBC 0-4 /hpf (0-2) H 08/27/22 21:20 Urine WBC 5-10 /hpf (0-5) H 08/27/22 21:20 Ur Squamous Epith Cells 5-10 /hpf (0-5) H 08/27/22 21:20 Amorphous Sediment 2+ /hpf 08/27/22 21:20 Urine Bacteria 1+ /hpf (NONE) H 08/27/22 21:20 Urine Mucus 3+ /hpf 08/27/22 21:20 Discharge Plan Discharge Patient Disposition: Home Clinical Impression: Strain of neck muscle UTI (urinary tract infection) Qualifiers: Urinary tract infection type: acute cystitis Hematuria presence: without he maturia Qualified Code(s): N30.00 - Acute cystitis without hematuria Condition: Stable Prescriptions: New cephalexin 500 mg capsule 500 mg PO TID Qty: 15 0RF diclofenac sodium 75 mg tablet,delayed release (DR/EC) 75 mg PO BID Qty: 14 0RF hydrocodone-acetaminophen 5-325 mg tablet 1 tab PO Q6H PRN (Reason: pain (scale score 7-10)) Qty: 10 0RF cephalexin 250 mg/5 mL suspension for reconstitution 500 mg PO TID 5 Days Qty: 150 0RF No Action pantoprazole 40 mg tablet,delayed release (DR/EC) See Rx Instructions PO DAILY Qty: 30 3RF Rx Instructions: take in AM 30 minutes before meal PO daily; prednisone 10 mg tablet See Rx Instructions .ROUTE .COMPLEX Qty: 90 1RF Dose Instruction: Take 1 tablet by mouth once daily Rx Instructions: Take 1 tablet by mouth once daily leflunomide 20 mg tablet 20 mg PO DAILY Qty: 30 3RF cyclobenzaprine 10 mg tablet 10 mg PO TID PRN (Reason: muscle spasm) Qty: 30 0RF prednisone 5 mg tablet 5 mg PO DAILY Qty: 90 1RF clonazepam 0.5 mg tablet 0.5 mg PO DAILY PRN (Reason: Anxiety) levothyroxine 75 mcg Tablet 75 mcg PO DAILY Discharge Orders: Discharge ED (Routine); Ordered 08/27/22 Ordered By: Jaswant Canela Referrals: Blossom Cope FNP [Primary Care Provider] - Discharge Diet: Usual diet Discharge Activity: Increase activity as tolerated Patient Instructions: Acute Neck Pain (ED) Activity Restrictions/Additional Instructions: Take diclofenac 75 mg 2 times a day for pain and inflammation. Use cephalexin 503 times a day for the next 5 days for urinary tract infection. Use hydrocodone as needed for severe pain. Use ice or heat for further pain relief. Follow-up with primary care for further instruction and evaluation. Return to ED for worsening symptoms such as inability to hold fluids down, high fever greater than 100.4, or new concerns. Coding Level of Care Code ED Clicker Operator for Kavita Mcdermott
--- NOTE | 2022-08-27 19:23 | CTR_ITS ---
PROCEDURE INFORMATION: Exam: CT Cervical Spine Without Contrast Exam date and time: 08/27/2022 7:56 PM Age: 32 years old Clinical indication: Patient HX: C/O diffuse neck pain x 5 days. History of rheumatoid arthritis. ; Additional info: Rheumatoid arthritis, neck pain, decrease rom TECHNIQUE: Imaging protocol: Computed tomography of the cervical spine without contrast. Radiation optimization: All CT scans at this facility use at least one of these dose optimization techniques: automated exposure control; mA and/or kV adjustment per patient size (includes targeted exams where dose is matched to clinical indication); or iterative reconstruction. REPORTING DATA: Count of CT and Cardiac NM exams in prior 12 months: This patient has received 0 known CTs and 0 known cardiac nuclear medicine studies in the 12 months prior to the current study. COMPARISON: CR XR cervical spine fl/ex [id number] 01/17/2021 3:15 PM RADIATION DOSE METRICS: Total DLP (mGy-cm): 311.77 FINDINGS: Bones/joints: No acute fracture. Normal alignment. No significant disc bulge or herniation. No severe spinal canal stenosis. No significant neural foraminal narrowing. Lungs: Lung apices are normal. Soft tissues: Unremarkable. CT/CT cervical spin wo con* [id number] IMPRESSION: No acute findings.
[2022-08-27] MEDS: HYDROcodone-acetaminophen 10-325 mg Tablet 1 TAB PO (19:35)
[2022-08-27 19:52] LABS: Basophils # 0.1 10^3/uL (0.0-0.1); Basophils % 0.5 %; Eosinophils # 0.1 10^3/uL (0.0-0.8); Eosinophils % 0.6 %; Hematocrit 45.1 % (37.0-47.0); Hemoglobin 14.3 g/dL (11.5-15.3); Lymphocytes % 13.6 %; Mean Corpuscular HGB Conc 31.7 g/dL (30.0-36.0); Mean Corpuscular Volume 91.5 fl (81-99); Mean Platelet Volume 10.6 fL (7.4-10.4); Monocytes # 1.4 10^3/uL (0.2-0.9); Monocytes % 6.2 %; Neutrophils # 16.98 10^3/uL (1.8-7.7); Neutrophils % 77.5 %; Nucleated Red Blood Cells % 0 %; Platelet Count 379 10^3/cmm (130-400); Red Blood Count 4.93 10^6/uL (4.1-5.3); Red Cell Distribution Width 13.5 % (12.1-15.1); White Blood Count 21.9 10^3/uL (4.0-10.0)
[2022-08-27 19:56] LABS: Erythrocyte Sedimentation Rate 30 mm/hr (0-15)
[2022-08-27 20:08] LABS: Alanine Aminotransferase 12 U/L (0-33); Alkaline Phosphatase 99 U/L (35-105); Anion Gap 18.6 (5-19); Aspartate Amino Transferase 9 U/L (0-32); Blood Urea Nitrogen 6 mg/dL (6-20); C Reactive Protein 34.1 mg/L (0.0-4.9); Calcium 9.1 mg/dL (8.5-10.5); Carbon Dioxide 24 mmol/L (22-29); Chloride 100 mmol/L (98-107); Globulin 4.1 g/dL (1.3-4.6); Glomerular Filtration Rate 97.6 mL/min (90-130); Glucose 95 mg/dL (65-115); Osmolality Calculated 285 mOsm/kg (285-295); Potassium 3.6 mmol/L (3.5-5.1); Sodium 139 mmol/L (136-145); Total Bilirubin 0.3 mg/dL (0.15-1.2); Total Protein 8.1 g/dL (6.6-8.7)
[2022-08-27] MEDS: ketorolac 60 mg/2 mL INJ IM (21:24)
[2022-08-27 21:35] LABS: Add Urine Microscopic? YES; Bilirubin Urine Neg (Negative); Blood Urine Neg (Negative); Glucose Urine UA Norm (Normal); Ketones Urine Negative (Negative); Leukocyte Esterase Urine 1+ (Negative); Nitrate Urine Negative (Negative); Protein Urine Neg (Negative); Urine Appearance Hazy (CLEAR); Urine Color Yellow (Yellow); Urobilinogen Urine Neg (Negative); pH Urine 5 (5-7)
[2022-08-27 21:36] LABS: Add Urine Culture? No; Amorphous Sediment Urine 2+ /hpf; Bacteria Urine 1+ /hpf; Mucus Urine 3+ /hpf; RBC Urine 0-4 /hpf (0-2)
[2022-08-27 21:50] VITALS: RESP 18; O2SAT 98
== END 2022-08-27 22:33 | disposition home or self-care (01) ==
PROVIDERS: Emergency Provider Nurse Practitioner Family; PCP Nurse Practitioner Family
DX: N30.00 Acute cystitis without hematuria (principal); S16.1XXA Strain of muscle, fascia and tendon at neck level, initial encounter; X58.XXXA Exposure to other specified factors, initial encounter; Z79.52 Long term (current) use of systemic steroids
CPT/HCPCS: 36415; 72125; 80053; 81001; 85025; 85651; 86140; 96372; 99284; J1885

== ENCOUNTER 2022-09-24 12:19 | Outpatient (CLI) | payer OTHER, SELFPAY ==
--- NOTE | 2022-09-24 12:28 | XRR_ITS ---
PROCEDURE INFORMATION: Exam: XR Chest Exam date and time: 09/24/2022 12:31 PM Age: 32 years old Clinical indication: Shortness of breath; Additional info: R06.02 - shortness of breath TECHNIQUE: Imaging protocol: Radiologic exam of the chest. Views: 2 views. COMPARISON: CR XR chest 1V portable [id number] 12/28/2021 3:16 PM FINDINGS: Lungs: There is no consolidation. Pleural spaces: There is no pleural effusion or pneumothorax. Heart/Mediastinum: Cardiomediastinal contours are unremarkable. Bones/joints: Bones are unremarkable. XR/XR chest 2V* [id number] IMPRESSION: No acute findings.
== END 2022-09-24 12:20 | disposition home or self-care (01) ==
LOC: RAD 12:23
PROVIDERS: PCP Nurse Practitioner Family; Visit Provider Internal Medicine Rheumatology
DX: R06.02 Shortness of breath (principal)
CPT/HCPCS: 71046

== ENCOUNTER 2022-09-25 12:15 | Outpatient (CLI) | payer OTHER, SELFPAY ==
[2022-09-25 12:42] LABS: Basophils # 0.1 10^3/uL (0.0-0.1); Basophils % 0.6 %; Eosinophils # 0.1 10^3/uL (0.0-0.8); Eosinophils % 0.9 %; Hemoglobin 13.1 g/dL (11.5-15.3); Lymphocytes # 2.3 10^3/uL (0.8-4.8); Lymphocytes % 18.3 %; Mean Corpuscular Hemoglobin 28.7 pg (28.0-34.0); Mean Corpuscular Volume 89.7 fl (81-99); Mean Platelet Volume 11.9 fL (7.4-10.4); Neutrophils # 9.07 10^3/uL (1.8-7.7); Neutrophils % 71.6 %; Nucleated Red Blood Cells % 0 %; Platelet Count 362 10^3/cmm (130-400); Red Blood Count 4.57 10^6/uL (4.1-5.3); Red Cell Distribution Width 13.2 % (12.1-15.1); White Blood Count 12.7 10^3/uL (4.0-10.0)
[2022-09-25 12:54] LABS: Alanine Aminotransferase 12 U/L (0-33); Albumin Level 3.8 g/dL (3.5-5.2); Alkaline Phosphatase 91 U/L (35-105); Aspartate Amino Transferase 8 U/L (0-32); Globulin 3.4 g/dL (1.3-4.6); Glomerular Filtration Rate 97.6 mL/min (90-130); Total Bilirubin 0.2 mg/dL (0.15-1.2); Total Protein 7.2 g/dL (6.6-8.7)
== END 2022-09-25 12:16 | disposition home or self-care (01) ==
PROVIDERS: PCP Nurse Practitioner Family; Visit Provider Internal Medicine Rheumatology
DX: M19.90 Unspecified osteoarthritis, unspecified site (principal); Z79.899 Other long term (current) drug therapy
CPT/HCPCS: 36415; 80076; 82565; 85025

== ENCOUNTER → 2022-10-17 12:15 | Outpatient (BNVA) | payer OTHER, SELFPAY | PROVIDERS: PCP Nurse Practitioner Family; Visit Provider Internal Medicine | DX: R77.8 Other specified abnormalities of plasma proteins (principal); E03.9 Hypothyroidism, unspecified | CPT/HCPCS: 84439; 84443 ==

== ENCOUNTER → 2022-11-20 14:56 | Outpatient (BNVA) | payer OTHER, SELFPAY | PROVIDERS: PCP Nurse Practitioner Family; Visit Provider Internal Medicine | DX: R07.9 Chest pain, unspecified (principal) | CPT/HCPCS: 93005 ==

== ENCOUNTER 2022-11-25 11:46 | Outpatient (CLI) | payer OTHER, SELFPAY ==
--- NOTE | 2022-11-25 12:15 | USCV_ITS ---
Donald Isabela Age: 32 Gender: F : 1990 Exam Date: 11/25/2022 12:22 Ordering Phys: Eitan Arguelels M.D ([email or web address]) Technologist: Na Copeland Exam Location: [facility] [place] Indication: SOB BP: 154 / 96 HR: 85 Rhythm: Sinus Technical Quality: Adequate MEASUREMENTS (Male / Female) Normal Values 2D ECHO LV Diastolic Diameter PLAX 4.7 cm 4.2 - 5.9 / 3.9 - 5.3 cm LV Systolic Diameter PLAX 1.9 cm IVS Diastolic Thickness 1.0 cm 0.6 - 1.0 / 0.6 - 0.9 cm IVS Systolic Thickness 1.3 cm LVPW Diastolic Thickness 1.0 cm 0.6 - 1.0 / 0.6 - 0.9 cm LVPW Systolic Thickness 1.7 cm LVOT Diameter 2.0 cm LV Ejection Fraction 2D Teich 88.5 % LV Ejection Fraction MOD 2C 63.1 % LV Ejection Fraction 2C AL 65.8 % LA Diameter 2.8 cm LA Width 3.2 cm LA Height 3.8 cm RA Width 2.5 cm RA Height 3.7 cm Aorta at Sinotubular Diameter 1.9 cm IVC Diameter 1.3 cm M-MODE Aortic Annulus Diameter 2.7 cm LA Ao Ratio MM 1.1 MV E Point Septal Separation 0.4 cm DOPPLER AV Peak Velocity 121.0 cm/s LVOT Peak Velocity 88.0 cm/s AV Area Cont Eq vti 2.8 cm squared AV Area Cont Eq pk 2.3 cm squared MV Peak Velocity 104.0 cm/s MV Area PHT 3.7 cm squared Mitral E to A Ratio 1.2 MV E' Velocity 52.5 cm/s Mitral E to MV E' Ratio 6.4 Mitral E to LV E' Lateral Ratio 5.8 Mitral E to LV E' Septal Ratio 7.2 TR Peak Velocity 66.0 cm/s TR Peak Gradient 1.7 mmHg Right Atrial Pressure 5.0 mmHg Pulmonary Artery Systolic Pressu 6.7 mmHg PV Peak Velocity 137.0 cm/s RV Acceleration Time 0.1 s RV Ejection Time 0.3 s RV AcT/ET 0.3 FINDINGS Left Ventricle Left ventricle is normal size. LV systolic function is normal with EF of 50 to 55%. No gross regional wall motion abnormalities. Right Ventricle Normal in size and function Right Atrium Normal in size Left Atrium Normal in size Mitral Valve Grossly normal Aortic Valve Grossly normal. No significant stenosis or regurgitation. Tricuspid Valve Mild tricuspid regurgitation. Insufficient TR jet to calculate RVSP Pulmonic Valve Not well visualized Pericardium Normal Aorta Normal in size IVC Appears to be normal CONCLUSIONS Technically limited quality echocardiogram because of poor ultrasonic windows. LV systolic function is normal with EF of 50-55% Grossly valvular structures are normal. Mild tricuspid regurgitation No comparison studies are available Eitan Arguelles MD (Electronically Signed) Final Date: 08 December 2022 13:58 S
== END 2022-11-25 11:47 | disposition home or self-care (01) ==
PROVIDERS: PCP Nurse Practitioner Family; Visit Provider Internal Medicine
DX: R06.02 Shortness of breath (principal); R07.9 Chest pain, unspecified; I07.1 Rheumatic tricuspid insufficiency
CPT/HCPCS: 93306

== ENCOUNTER 2022-11-26 12:22 | Outpatient (CLI) | payer OTHER, SELFPAY ==
--- NOTE | 2022-11-26 | ECG_ITS ---
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 Interpretive Statements NAME OF STUDY: TREADMILL STRESS TEST INDICATION: [Chest Pain, ] EXERCISE DATA: The patient was exercised by Jai protocol. Baseline heart rate was 97 beats per minute. Baseline blood pressure was 130/98 millimeters of mercury. Target heart rate was 161 beats per minute. Maximum heart rate achieved was 170, which was 105% of the target heart rate. Maximum blood pressure twk005/ 90millimeters of mercury. Total exercise time was 4 minutes and 2 seconds. Maximum METs achieved was 7. No patient symptoms documented. ELECTROCARDIOGRAM: BASELINE: Showed sinus rhythm, normal axis, no significant ST-T changes at the baseline noted. [] EXERCISE: At the peak exercise level, [] No significant ST-T changes suggestive of ischemia noted. [] RECOVERY: During the recovery period, heart rate dropped appropriately. No significant ST-T changes in the recovery suggestive of ischemia noted. [] CONCLUSION: 1. Exercise capacity is fair 2. Heart rate response was appropriate 3. Blood pressure response was appropriate 4. Symptoms not suggestive of ischemia. 5. Stress test does not show evidence of ischemia Electronically Signed On 12-03-2022 14:02:36 CDT by Eitan Arguelles M.D. [id number]
[2022-11-26 12:31] VITALS: BMI 51.0
[2022-11-26 13:06] VITALS: BP 169/107; PULSE 117
== END 2022-11-26 12:23 | disposition home or self-care (01) ==
LOC: CDL 12:22
PROVIDERS: PCP Nurse Practitioner Family; Visit Provider Internal Medicine
DX: R07.9 Chest pain, unspecified (principal)
CPT/HCPCS: 93017

== ENCOUNTER → 2022-11-27 15:42 | Outpatient (BNVA) | payer OTHER, SELFPAY | PROVIDERS: PCP Nurse Practitioner Family; Visit Provider Internal Medicine Rheumatology | DX: Z79.899 Other long term (current) drug therapy (principal); M19.90 Unspecified osteoarthritis, unspecified site; L95.9 Vasculitis limited to the skin, unspecified; M79.7 Fibromyalgia | CPT/HCPCS: 36415; 80076; 82565; 85025; 86140 ==

== ENCOUNTER 2022-12-26 11:40 | Emergency (ER) | payer OTHER, SELFPAY ==
--- NOTE | 2022-12-26 11:40 | XR_ITS ---
WS: [id number] Exam: XR chest 1V portable [id number] Date/Time of Exam: 12/26/2022 12:03 PM Reason For Exam: cp Comparison 09/24/2022. Findings: The lungs are clear and fully expanded. Costophrenic angles are sharp. No infiltrates. Bronchovascula r relief appears normal. Cardiac silhouette is unremarkable. Bony elements are intact. IMPRESSION: Unremarkable chest radiograph.
[2022-12-26 11:44] VITALS: BP 175/128; PULSE 98; RESP 18; TEMP 36.4; O2SAT 97
--- NOTE | 2022-12-26 11:52 | ECG_ITS ---
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 Measurements Intervals [place] Rate: 96 P: 32 AL: 149 QRS: 37 QRSD: 86 T: 30 QT: 325 QTc: 413 Interpretive Statements SINUS RHYTHM Compared to ECG 11/20/2022 15:04:09 No significant changes Electronically Signed On 12-26-2022 19:25:31 CDT by Mohit Nixon M.D. [id number] f
[2022-12-26 12:14] LABS: Basophils # 0.1 10^3/uL (0.0-0.1); Basophils % 0.6 %; Eosinophils # 0.3 10^3/uL (0.0-0.8); Eosinophils % 2.3 %; Hematocrit 41.3 % (36-47); Lymphocytes # 1.9 10^3/uL (0.8-4.8); Lymphocytes % 13.4 %; Mean Corpuscular Hemoglobin 27.5 pg (27-33); Mean Corpuscular Volume 88.8 fl (85-98); Mean Platelet Volume 11.9 fL (7.4-10.4); Monocytes % 7.1 %; Neutrophils # 10.95 10^3/uL (1.8-7.7); Neutrophils % 75.7 %; Nucleated Red Blood Cells % 0 %; Platelet Count 337 10^3/cmm (157-399); Red Blood Count 4.65 10^6/uL (3.85-5.65); Red Cell Distribution Width 13.2 % (12.1-15.1); White Blood Count 14.45 10^3/uL (3.29-11.43)
[2022-12-26 12:24] LABS: INR 0.94 (0.8-1.2)
[2022-12-26 12:33] LABS: Alanine Aminotransferase 13 U/L (0-33); Albumin Level 3.8 g/dL (3.5-5.2); Alkaline Phosphatase 100 U/L (35-105); Anion Gap 13.7 (5-19); Aspartate Amino Transferase 12 U/L (0-32); Blood Urea Nitrogen 8 mg/dL (6-20); Calcium 8.7 mg/dL (8.5-10.5); Carbon Dioxide 27 mmol/L (22-29); Chloride 103 mmol/L (98-107); Glomerular Filtration Rate 97.6 mL/min (90-130); Glucose 108 mg/dL (65-115); Lipase 15 U/L (13-60); Osmolality Calculated 289 mOsm/kg (285-295); Potassium 3.7 mmol/L (3.5-5.1); Sodium 140 mmol/L (136-145); Total Bilirubin 0.2 mg/dL (0.15-1.2); Total Protein 6.8 g/dL (6.6-8.7)
[2022-12-26 12:35] LABS: Troponin(5th) Baseline 6 ng/L (0-10)
[2022-12-26 13:07] VITALS: BP 189/114; PULSE 93; RESP 18; O2SAT 97
--- NOTE | 2022-12-26 13:08 | ED_ITS ---
HPI - Chest Pain General: Chief Complaint: Chest Pain Stated Complaint: Chest pressure Time Seen by Provider: 12/26/22 12:57 Source: patient Mode of arrival: ambulatory Limitations: no limitations History of Present Illness: 32-year-old female states been having some chest pain off and on for 2 to 3 mo nths. States that over the last 2 days she had some worsening discomfort in the center of her chest states been a pressure type pain. States she is also had some slight dyspnea with that is aware. She states her pain is currently 2 out of 10 denies any cough denies any fevers denies any worsening improving factors. Patient is hypertensive here she states she is not typically hypertensive at [facility] but she states that she does have high blood pressure readings when she goes and sees the physicians. Associated symptoms: Reports dyspnea; Deny abdominal pain, fever(s), nausea or vomiting Review of Systems Const: Denies: fever(s) or chills Eyes: Denies: blurry vision or eye discomfort ENMT: Denies: throat pain or dental pain Card: Reports: chest pain Resp: Reports: dyspnea GI: Denies: abdominal pain, nausea, vomiting or diarrhea : Denies: dysuria Musc: Denies: neck pain or back pain Skin/Breast: Denies: rash Neuro: Denies: headache(s) PFSH ED PFSH: Medical History Chronic steroid use Cutaneous vasculitis Fibromyalgia High risk medication use Hypothyroidism Inflammatory arthritis Surgical History Hx of section Hx of cholecystectomy Family History Mother Cancer Father Diabetes Denies family history of Rheumatoid arthritis Lupus CAD (coronary artery disease) Hyperlipidemia Hypertension Stroke Social History Smoking and tobacco status: never smoked Alcohol intake: never Physical Exam Const: COMMON NORMALS: no acute distress, patient oriented x3 and healthy appearing HENMT: COMMON NORMALS: normocephalic and atraumatic HEAD & SCALP: nor mocephalic and atraumatic Neck/C-Spine: COMMON NORMALS: full ROM and supple Chest: COMMONS NORMALS: normal inspection of the chest and normal palpation of entire chest wall Resp: COMMON NORMALS: normal respiratory effort, No retractions, No use of accessory muscles and clear to auscultation bilaterally AUSCULTATION: clear to auscultation bilaterally Cardio: COMMON NORMALS: regular rate, regular rhythm and No murmurs present (Cardio) RATE: regular rate RHYTHM: regular rhythm GI: COMMON NORMALS: Normal to inspection, nondistended, normoactive bowel sounds present, Soft to palpation, non-tender and no masses PALPATION: Yes Soft to palpation Extremity: COMMON NORMALS: normal to inspection and full ROM Neuro: COMMON NORMALS: patient oriented x3, moves all extremities and no focal motor deficits Psych: COMMON NORMALS: mental status grossly normal, Normal thought process present and cooperative THOUGHT PROCESS: Normal thought process present Skin: COMMON NORMALS: no rashes or lesions noted and no wounds GENERAL SKIN EXAM: no rashes or lesions noted Course Vital Signs: Vital signs: Vital Signs Temperature 97.6 F 12/26/22 11:44 Pulse Rate 87 12/26/22 13:55 Respiratory Rate 18 12/26/22 13:55 Blood Pressure 140/92 12/26/22 13:55 Pulse Oximetry 95 12/26/22 13:55 Oxygen Delivery Me thod Room Air 12/26/22 13:55 MDM - Chest Pain Medical Decision Making Patient presents for chest pains atypical in nature troponins and D-dimer here are all normal no signs of dissection acute coronary syndrome or pulmonary embolism she is well-appearing here stable for discharge she is to follow-up with PCP and return if worsening. Medical Records I reviewed the patient's medical records. Lab Data I reviewed the patient's lab results. 12/26/22 12:02 12/26/22 12:02 Laboratory Results WBC 14.45 10^3/uL (3.29-11.43) H 12/26/22 12:02 RBC 4.65 10^6/uL (3.85-5.65) 12/26/22 12:02 Hgb 12.80 g/dL (11.27-16.99) 12/26/22 12:02 Hct 41.3 % (36-47) 12/26/22 12:02 MCV 88.8 fl (85-98) 12/26/22 12:02 MCH 27.5 pg (27-33) 12/26/22 12:02 MCHC 31.0 g/dL (30-55) 12/26/22 12:02 RDW 13.2 % (12.1-15.1) 12/26/22 12:02 Plt Count 337 10^3/cmm (157-399) 12/26/22 12:02 MPV 11.9 fL (7.4-10.4) H 12/26/22 12:02 Neut % (Auto) 75.7 % 12/26/22 12:02 Lymph % (Auto) 13.4 % 12/26/22 12:02 [place] % (Auto) 7.1 % 12/26/22 12:02 Eos % (Auto) 2.3 % 12/26/22 12:02 Baso % (Auto) 0.6 % 12/26/22 12:02 Neut # (Auto) 10.95 10^3/uL (1.8-7.7) H 12/26/22 12:02 Lymph # (Auto) 1.9 10^3/uL (0.8-4.8) 12/26/22 12:02 [place] # (Auto) 1.0 10^3/uL (0.2-0.9) H 12/26/22 12:02 Eos # (Auto) 0.3 10^3/uL (0.0-0.8) 12/26/22 12:02 Baso # (Auto) 0.1 10^3/uL (0.0-0.1) 12/26/22 12:02 Nucleated RBC % (auto) 0 % 12/26/22 12:02 Nucleated RBCs # 0.0 /100WBC 12/26/22 12:02 PT 12.90 SECONDS (12.1-14.9) 12/26/22 12:02 INR 0.94 (0.8-1.2) 12/26/22 12:02 D-Dimer 0.43 ug/mLFEU (0-0.59) 12/26/22 12:02 Sodium 140 mmol/L (136-145) 12/26/22 12:02 Potassium 3.7 mmol/L (3.5-5.1) 12/26/22 12:02 Chloride 103 mmol/L (98-107) 12/26/22 12:02 Carbon Dioxide 27 mmol/L (22-29) 12/26/22 12:02 Anion Gap 13.7 (5-19) 12/26/22 12:02 BUN 8 mg/dL (6-20) 12/26/22 12:02 Creatinine 0.7 mg/dL (0.5-0.9) 12/26/22 12:02 GFR Calculation 97.6 mL/min (90-130) 12/26/22 12:02 Glucose 108 mg/dL (65-115) 12/26/22 12:02 Calculated Osmolality 289 mOsm/kg (285-295) 12/26/22 12:02 Calcium 8.7 mg/dL (8.5-10.5) 12/26/22 12:02 Total Bilirubin 0.2 mg/dL (0.15-1.2) 12/26/22 12:02 AST 12 U/L (0-32) 12/26/22 12:02 ALT 13 U/L (0-33) 12/26/22 12:02 Alkaline Phosphatase 100 U/L (35-105) 12/26/22 12:02 Troponin T Baseline 6 ng/L (0-10) 12/26/22 12:02 Troponin T 120 Minute 8.45 ng/L (0-10) 12/26/22 13:15 Delta Troponin T 2.45 ABS# (0-10) 12/26/22 13:15 Total Protein 6.8 g/dL (6.6-8.7) 12/26/22 12:02 Albumin 3.8 g/dL (3.5-5.2) 12/26/22 12:02 Globulin 3.0 g/dL (1.3-4.6) 12/26/22 12:02 Lipase 15 U/L (13-60) 12/26/22 12:02 EKG Data EKG 1: I personally reviewed and interpreted this EKG as follows: EKG interpretation date: 12/26/22 EKG interpretation time: 11:52 Interpretation: nsr hr [address] or t wave abnormalities qrs 86 qtc 379 Discharge Plan Discharge Patient Disposition: Home Clinical Impression: Chest pain Condition: Stable Prescriptions: No Action leflunomide 20 mg tablet 20 mg PO DAILY Qty: 90 0RF prednisone 2.5 mg tablet See Rx Instructions PO .COMPLEX Qty: 60 0RF Rx Instructions: alternate taking 5mg today with 2.5mg tomorrow [id number] then 2.5 daily x 10days then 2.5mg QOD x10 days then stop amitriptyline 25 mg tablet 25 mg PO BEDTIME prednisone 5 mg tablet 5 mg PO DAILY Qty: 90 1RF clonazepam 0.5 mg tablet 0.5 mg PO DAILY PRN (Reason: Anxiety) levothyroxine 75 mcg Tablet 75 mcg PO DAILY hydroxychloroquine 200 mg tablet 200 mg PO BID pantoprazole 40 mg tablet,delayed release (DR/EC) 40 mg PO DAILY Discharge Orders: Discharge ED (Routine); Ordered 12/26/22 Ordered By: Arun Gordon Referrals: Blossom Cope FNP [Primary Care Provider] - 1-3 days Discharge Diet: Advance as tolerated Discharge Activity: Resume usual activity Patient Instructions: Chest Pain (ED) Coding Level of Care Code ED Electric Transfer Operator for Kavita Mcdermott
[2022-12-26] MEDS: labetalol 5 mg/mL SDV 20mL 10 MG IVP (13:19)
[2022-12-26 13:46] LABS: D Dimer 0.43 ug/mLFEU (0-0.59)
[2022-12-26 13:55] VITALS: BP 140/92; PULSE 87; RESP 18; O2SAT 95
[2022-12-26 14:10] LABS: Troponin 5 2HR 8.45 ng/L (0-10); Troponin 5 2HR Delta 2.45 ABS# (0-10)
== END 2022-12-26 14:10 | disposition home or self-care (01) ==
PROVIDERS: Emergency Provider Emergency Medicine; PCP Nurse Practitioner Family
DX: R07.9 Chest pain, unspecified (principal)
CPT/HCPCS: 36415; 71045; 80053; 83690; 84484; 85025; 85378; 85610; 93005; 96374; 99285; J3490

== ENCOUNTER → 2024-12-03 09:10 | Outpatient (BNVA) | payer OTHER, SELFPAY | PROVIDERS: PCP Nurse Practitioner Family; Visit Provider Internal Medicine | DX: E03.9 Hypothyroidism, unspecified (principal); E07.9 Disorder of thyroid, unspecified; R77.8 Other specified abnormalities of plasma proteins; Z91.014 Allergy to mammalian meats | CPT/HCPCS: 36415; 84443 ==